=== PATIENT | female | born 2000 | race Caucasian/White ===

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

== ENCOUNTER → 2023-11-04 08:52 | Outpatient (CLI) | payer OTHER, SELFPAY ==
[2023-11-04 09:39] LABS: Add Manual Diff / Slide Review NO; Basophils Absolute Auto 0 /uL (0-100); Basophils Percent Auto 0.7 % (0-2); Eosinophils Absolute Auto 100 /uL (0-450); Eosinophils Percent Auto 2.2 % (2-4); Hematocrit 40.4 % (36-46); Hemoglobin 13.8 g/dL (12.0-16.0); Lymphocytes Absolute Auto 1500 /uL (1100-4500); Lymphocytes Percent Auto 32.7 % (25-40); Mean Corpuscular HGB Conc 34.1 % (30-36); Mean Corpuscular Hemoglobin 29.9 PG (26-34); Mean Corpuscular Volume 87.8 fL (80-100); Monocytes Absolute Auto 400 /uL (0-900); Monocytes Percent Auto 9.2 % (3-14); Neutrophils Absolute Auto 2600 /uL (1500-7000); Neutrophils Percent Auto 55.2 % (50-75); Platelet Count 158 X10^3/uL (150-400); Red Blood Cell Count 4.61 X10^6/uL (4.0-5.2); Red Cell Distribution Width 12.6 % (11.6-14.8); White Blood Cell Count 4.7 X10^3/uL (4.5-11.0)
[2023-11-04 09:48] LABS: Hemoglobin A1C% w Est Avg Glu 4.6 % (4.0-6.0)
[2023-11-04 10:08] LABS: Alanine Aminotransferase 23 IU/L (<35); Albumin 4.6 g/dL (3.5-5.0); Albumin Globulin Ratio 1.4 (1.0-2.8); Alkaline Phosphatase 51 U/L (38-126); Aspartate Aminotransferase 25 IU/L (14-36); BUN Creatinine Ratio 16.4 (6-22); Bilirubin Total 1.3 mg/dL (0.2-1.3); Blood Urea Nitrogen 10 mg/dL (7-17); Calcium 9.3 mg/dL (8.4-10.2); Carbon Dioxide 25 mmol/L (22-32); Chloride 104 mmol/L (98-107); Estimated Glomerular Filt Rate > 60 mL/min (>60); Globulin 3.3 g/dL (1.7-4.1); Glucose 89 mg/dL (70-100); HEMOLYSIS < 15 (0-50); Sodium 140 mmol/L (137-145); Total Protein 7.9 g/dL (6.3-8.2)
[2023-11-04 10:09] LABS: Potassium 3.8 mmol/L (3.4-5.1)
[2023-11-04 10:35] LABS: TSH w/ Reflex to FT4 1.77 uIU/mL (0.47-4.68)
== END ==
PROVIDERS: PCP Family Medicine; Referring Provider Family Medicine; Visit Provider Family Medicine
DX: Z13.9 Encounter for screening, unspecified (principal)
CPT/HCPCS: 36415; 80053; 83036; 84443; 85025

== ENCOUNTER 2024-03-12 18:09 | Emergency (ER) | payer OTHER, SELFPAY ==
[2024-03-12 18:21] VITALS: BP 123/72; PULSE 73; RESP 18; TEMP 37.2; O2SAT 100; BMI 22.7
--- NOTE | 2024-03-12 22:35 | ED_ITS ---
HPI - Female Genitourinary General Chief complaint: Urogenital-Female Stated complaint: vaginal laceration Time Seen by Provider: 03/12/24 22:02 Source: patient Mode of arrival: Ambulatory History of Present Illness HPI Narrative: 23-year-old female presents for possible vaginal laceration. Having intercourse with her significant other last night when she felt like something got ripped. She notes occasional spotting on toilet tissue and pain with wiping. She states that she feels safe with this partner. Denies history of STIs, denies concern for STIs. Denies vaginal bleeding, vaginal discharge. She states that she has never had a Pap smear before. He uses condoms for control. Denies possibility of Related Data Previous Rx's Medication Instructions Recorded bupropion HCl 150 mg 24 hr tablet, 150 mg PO DAILY #30 tabs 11/25/23 extended release Allergies Allergy/AdvReac Type Severity Reaction Status Date / Time Penicillins Allergy Verified 11/04/23 08:07 Patient History Medical History Pre-syncope Moderate depressive disorder Anxiety Skin rash Family History Father Diabetes mellitus Hypertension Hyperlipidemia Grandfather Hypertension Stroke Grandfather Cancer Stroke alcohol intake frequency: holidays/special occasions only Substance Use Type: does not use Exam Initial Vital Signs Initial Vital Signs: Vital Signs Temperature 99 F 03/12/24 18:21 Pulse Rate 73 03/12/24 18:21 Respiratory Rate 18 03/12/24 18:21 Blood Pressure 123/72 03/12/24 18:21 Pulse Oximetry 100 03/12/24 18:21 Oxygen Delivery Method Room Air 03/12/24 18:21 Const: Awake, alert, no acute distress, nontoxic appearing GI: Soft, nontender, nondistended, no rebound, no guarding : Normal external genitalia, scant linear abrasion left labia minora, cervix closed, trace blood in vaginal vault, no unusual discharge Skin: Warm, Dry, intact, no rashes Neuro: AO x3, CN II-XII grossly intact, moves all extremities Course Vital Signs Vital signs: Vital Signs - 8 hr 03/12/24 18:21 Temperature 99 F Pulse Rate 73 Respiratory Rate 18 Blood Pressure 123/72 Pulse Oximetry 100 Oxygen Delivery Method Room Air MDM - Female Genitourinary Differential Diagnosis Differential diagnosis: Likely urinary tract infection, vaginitis and cystitis MDM Narrative Medical decision making narrative: Well-appearing patient with accidental injury to external genitalia. Pelvic exam is unremarkable. There is a minimal linear abrasion on the left labia minora without laceration or wound requiring sutures. Patient states that she feels comfortable in her current relationship and has no concerns of abuse. Patient asked how she may prevent these injuries, I recommended a sense of for play, water-based lubricant prior to penetration. I also recommended that emelina gonzalez get a comprehensive Pap smear from OBGYN since she was sexually active and has never had a formal Pap smear before. Discharge Plan Departure Patient Disposition: Home Clinical Impression: Abrasion of labia minora Instructions: DI for Vaginal Itching Activity Restrictions/Additional Instructions: The injured area around your labia it was not actively bleeding and does not need sutures at this time. For the next several days wear a gentle barrier cream such as Aquaphor over the area of irritation. Wear a panty liner to avoid this getting on your underwear. Reapply barrier cream every time you use the restroom. To prevent this happening again I recommend using a water-based lubricant prior to penetration. Liberally apply the lubrication to help prevent irritation of the vaginal region. Make sure to follow up with OBGYN for a formal Pap smear Prescriptions: No Action bupropion HCl 150 mg tablet extended release 24 hr 150 mg PO DAILY Qty: 30 5RF Referrals: Sander Schwartz MD [Primary Care Provider] - Stand Alone Forms: Patient Portal/API, Work Release Note
== END 2024-03-12 22:40 | disposition home or self-care (01) ==
PROVIDERS: Emergency Provider Emergency Medicine; PCP Family Medicine
DX: S30.814A Abrasion of vagina and vulva, initial encounter (principal)
CPT/HCPCS: 99281